=== PATIENT | female | born 1985 | race Two or more races ===

== ENCOUNTER 2020-03-04 15:38 | Emergency (ER) | payer MEDICAID ==
[~2020-03-04] VITALS: Ht 160 cm; Wt 60.0 kg
[2020-03-04] MEDS ORDERED: IBUPROFEN 600MG TABLET PO STA (18:35)
[2020-03-04] MEDS ORDERED: TETANUS, DIPHTHERIA, PERTUSSIS VAC/PF 0.5ML (>7YR OLD) IM ONE (18:45)
[2020-03-04] MEDS ORDERED: BACITRACIN ZINC OINT UDPKT TOP ONE (18:45)
[2020-03-04 20:45] VITALS: BP 118/73
== END 2020-03-04 21:01 | disposition home or self-care (01) ==
LOC: ER 15:38
DX: S02.2XXA Fracture of nasal bones, initial encounter for closed fracture (principal); R42 Dizziness and giddiness; Y04.0XXA Assault by unarmed brawl or fight, initial encounter; Y93.89 Activity, other specified; Y92.89 Other specified places as the place of occurrence of the external cause; Y99.8 Other external cause status
CPT/HCPCS: 12011; 70486; 71045; 81025; 90471; 90715; 99284